=== PATIENT | male | born 1985 | race American Indian/Alaskan Native ===

== ENCOUNTER 2019-03-17 01:44 | Emergency (ER) | payer MEDICARE ==
--- NOTE | 2019-03-17 08:07 | Emergency Department Report ---
ED Rash HPI - HPI Chief Complaint: Urogenital-Male Stated Complaint: GROIN RASH Time Seen by Provider: 03/17/19 07:27 Duration: month Location: Other (penis head) Rash Symptoms: No Itching, No Facial Swelling, No Tongue/Oral Swelling, No Breathing Difficulties, No Choking Sensation, No Wheezing/Dyspnea, No Peeling, No Blistering, No Fever, No Lightheaded, No Malaise, No Myalgias Severity: mild Other History: This 34-year-old male presents to the ED complaining of nontender, and non erythemathous flat lesion to his penis times couple of michelet hs. He denies fever, penile discharge, testicular pain or swelling. Patient states that this rash is not itching or painful to the touch at all. ED Review of Systems ROS: Stated complaint: GROIN RASH Other details as noted in HPI Comment: All other systems reviewed and negative ED Past Medical Hx - Past Medical History Previous Medical History?: Yes Hx Psychiatric Treatment: Yes (BIPOLAR / DEPRESSION / SCHIZOAFFECTIVE) - Surgical History Past Surgical History?: No - Social History Smoking Status: Current Every Day Smoker Substance Use Type: None - Medications Home Medications: Home Medications Medication Instructions Recorded Confirmed Last Taken Type Divalproex ER [DepaKOTE ER] 500 mg PO BID 04/12/16 04/12/16 04/05/16 12:00 History Invega (Nf) 0 mg IM [id number] 04/12/16 04/13/16 Unknown History Haloperidol [Haldol] 08/08/16 Unknown History diphenhydrAMINE [Benadryl CAP] 25 mg PO Q8HR PRN 08/08/16 08/08/16 Unknown History Nystatin/Triamcin 1 applic TP TID #1 tube 03/17/19 Unknown Rx [Nystatin-Triamcinolone Ointm] Rash Exam - Exam General: Vital signs noted. No distress. Alert and acting appropriately. No testicular tenderness or swelling, no penile tenderness or swelling. no discharge noted to the penis HEENT: No Periorbital Edema, No Conjuctival Injection, No Chemosis, No Perioral Edema, No Tongue Edema, No Uvular Edema, No Compromised Airway, No Drooling Lungs: Yes Good Air Exchange, No Wheezes, No Ronchi, No Stridor, No Cough, No Labored Respirations, No Retractions, No Use of Accessory Muscles, No Other Abnormal Lung Sounds Heart: Yes Regular, No Murmur Skin: Yes Maculopapular Rash, No Urticarial Rash, No Morbilliform rash, No Bulla(e), No Excoriations, No Weeping, No Tenderness, No Erythema, No Edema, No Encrustations, No Other Other: Positive: Abdomen Normal, Neurologic Normal, Musculoskeletal Normal ED Medical Decision Making - Medical Decision Making 34-year-old male presents with pain mild nonerythematous nontender rash to the penis head. Discussed the patient that the rash is fungal in nature and is to apply nystatin ointment Discussed to follow up with primary care physician within 1 week. Patient urogenital emergency today in the ED. Vital signs are normal patient is in no acute distress Critical care attestation.: If time is entered above; I have spent that time in minutes in the direct care of this critically ill patient, excluding procedure time. ED Disposition Clinical Impression: Rash and nonspecific skin eruption Disposition: TO HOME OR SELFCARE Is pt being admited?: No Does the pt Need Aspirin: No Condition: Stable Instructions: Tinea Corporis (ED), Acute Rash (ED), Tinea Versicolor (ED) Additional Instructions: Make sure to follow up with the primary care physician as discussed. Take all your medications as you've been prescribed. If you have any worsening symptoms or develop new symptoms please return to ED immediately. Prescriptions: Nystatin/Triamcin [Nystatin-Triamcinolone Ointm] 1 applic TP TID #1 tube Referrals: PRIMARY CARE, [Primary Care Provider] - 3-5 Days [facility] [Outside] - 3-5 Days [facility] [Outside] - 3-5 Days Forms: Work/School Release Form(ED) Time of Disposition: 08:02 Print Language: AZERI
[2019-03-17 08:12] VITALS: BP 142/90
== END 2019-03-17 08:22 | disposition home or self-care (01) ==
LOC: ED 01:44
DX: R21 Rash and other nonspecific skin eruption (principal); F25.0 Schizoaffective disorder, bipolar type; F32.9 Major depressive disorder, single episode, unspecified; Z79.899 Other long term (current) drug therapy

== ENCOUNTER → 2020-03-07 15:11 | Emergency (ER) | payer MEDICARE | END | disposition left against medical advice (07) | LOC: ED 15:11 | DX: Z00.8 Encounter for other general examination (principal); Z53.21 Procedure and treatment not carried out due to patient leaving prior to being seen by health care provider ==

== ENCOUNTER 2020-09-07 00:40 | Emergency (ER) | payer MEDICARE ==
[2020-09-07 01:10] VITALS: BP 167/87
--- NOTE | 2020-09-07 01:26 | Emergency Department Report ---
ED Medical Clearance HPI - General Chief complaint: Medical Clearance Stated complaint: RX REILL Time Seen by Provider: 09/07/20 01:21 Source: patient Mode of arrival: Ambulatory - History of Present Illness Initial comments: 35-year-old -Malagasy male presents to the emergency room requesting a refill on his nystatin and triamcinolone cream. Patient has a past medical history of bipolar depression and schizophrenia but denies any suicidal or homicidal ideation denies any auditory visual hallucination. Patient denies any pain at this time. Reason for Medical Clearance: other (Medication refill) Home medications: Home Medications Medication Instructions Recorded Confirmed Last Taken Divalproex ER [DepaKOTE ER] 500 mg PO BID 04/12/16 04/12/16 04/05/16 12:00 Invega (Nf) 0 mg IM [id number] 04/12/16 04/13/16 Unknown diphenhydrAMINE [Benadryl CAP] 25 mg PO Q8HR PRN 08/08/16 08/08/16 Unknown haloperidoL [Haldol] 08/08/16 Unknown Previous Rx's Medication Instructions Recorded Last Taken Type Nystatin/Triamcin 1 applic TP TID #1 tube 09/07/20 Unknown Rx [Nystatin-Triamcinolone Ointm] Allergies/Adverse reactions: Allergies Allergy/AdvReac Type Severity Reaction Status Date / Time No Known Allergies Allergy Verified 08/08/16 14:02 ED Review of Systems ROS: Stated complaint: RX REILL Other details as noted in HPI Comment: All other systems reviewed and negative ED Past Medical Hx - Past Medical History Hx Psychiatric Treatment: Yes (BIPOLAR / DEPRESSION / SCHIZOAFFECTIVE) - Social History Smoking Status: Current Every Day Smoker - Medications Home Medications: Home Medications Medication Instructions Recorded Confirmed Last Taken Type Divalproex ER [DepaKOTE ER] 500 mg PO BID 04/12/16 04/12/16 04/05/16 12:00 History Invega (Nf) 0 mg IM [id number] 04/12/16 04/13/16 Unknown History diphenhydrAMINE [Benadryl CAP] 25 mg PO Q8HR PRN 08/08/16 08/08/16 Unknown History haloperidoL [Haldol] 08/08/16 Unknown History Nystatin/Triamcin 1 applic TP TID #1 tube 09/07/20 Unknown Rx [Nystatin-Triamcinolone Ointm] ED Physical Exam - General Limitations: No Limitations General appearance: alert, in no apparent distress - Head Head exam: Present: atraumatic, normocephalic - Eye Eye exam: Present: normal appearance - Neck Neck exam: Present: normal inspection, full ROM - Respiratory Respiratory exam: Absent: accessory muscle use - Cardiovascular Cardiovascular Exam: Present: regular rate - Extremities Exam Extremities exam: Present: normal inspection, full ROM - Back Exam Back exam: Present: normal inspection - Neurological Exam Neurological exam: Present: alert, oriented X3, normal gait - Psychiatric Psychiatric exam: Present: normal affect, normal mood - Skin Skin exam: Present: warm, dry, intact, normal color. Absent: rash ED Course Vital Signs 09/07/20 01:08 Temperature 97.9 F Pulse Rate 69 Respiratory 16 Rate Blood Pressure 167/87 O2 Sat by Pulse 100 Oximetry ED Medical Decision Making - Medical Decision Making 35-year-old -Malagasy male presents to the emergency room requesting a refill on his nystatin and triamcinolone cream. Patient has a past medical history of bipolar depression and schizophrenia but denies any suicidal or homicidal ideation denies any auditory visual hallucination. Patient denies any pain at this time. Patient is referred to [facility] for refill on psych meds. Patient be given a prescription refill for his eczema medication. ED Disposition Clinical Impression: Medication refill Disposition: DC-01 TO HOME OR SELFCARE Is pt being admited?: No Does the pt Need Aspirin: No Condition: Stable Additional Instructions: Please follow-up with your primary mental health provider. Prescriptions: Nystatin/Triamcin [Nystatin-Triamcinolone Ointm] 1 applic TP TID #1 tube Referrals: [facility] [Outside] - 3-5 Days [facility] [Outside] - 3-5 Days
== END 2020-09-07 01:40 | disposition home or self-care (01) ==
LOC: ED 00:40
DX: F25.0 Schizoaffective disorder, bipolar type (principal); Z76.0 Encounter for issue of repeat prescription; F17.200 Nicotine dependence, unspecified, uncomplicated; Z79.899 Other long term (current) drug therapy
CPT/HCPCS: 99282

== ENCOUNTER 2021-04-10 14:14 | Emergency (ER) | payer SELFPAY | END 2021-04-10 19:00 | LOC: ED 14:14 | DX: F98.9 Unspecified behavioral and emotional disorders with onset usually occurring in childhood and adolescence (principal); Z53.21 Procedure and treatment not carried out due to patient leaving prior to being seen by health care provider ==

== ENCOUNTER 2021-04-10 22:58 | Emergency (ER) | payer MEDICARE ==
--- NOTE | 2021-04-11 00:49 | Emergency Department Report ---
ED General Adult HPI - General Chief complaint: Abdominal Pain Stated complaint: ABD PAIN PUI?: No Time Seen by Provider: 04/11/21 00:39 Source: patient, RN notes reviewed, old records reviewed Mode of arrival: Ambulatory Limitations: No Limitations - History of Present Illness Initial comments: The patient is a 36-year-old gentleman. He has a history of chronic psychiatric disease. He presents to the ER with 2 complaints. His first complaint is request for refill on medications, including Risperdal, Invega, and Depakote/valproic acid. He thinks he takes Depakote 500 twice daily. He does not know his dose of Risperdal or Invega. He is not homicidal or suicidal. Secondary complaint is abdominal cramping for a few weeks. He states "I ate too much chocolate." Denies headache, neck pain, chest pain, vomiting, urinary symptoms and testicular pain, and he reports that he is passing gas. -: week(s) Location: abdomen Severity scale (0 -10): 8 Quality: aching Improves with: none Worsens with: none - Related Data Home Medications Medication Instructions Recorded Confirmed Last Taken Invega (Nf) 0 mg IM [id number] 04/12/16 04/13/16 Unknown diphenhydrAMINE [Benadryl CAP] 25 mg PO Q8HR PRN 08/08/16 08/08/16 Unknown haloperidoL [Haldol] 08/08/16 Unknown Previous Rx's Medication Instructions Recorded Last Taken Type Nystatin/Triamcin 1 applic TP TID #1 tube 09/07/20 Unknown Rx [Nystatin-Triamcinolone Ointm] Divalproex ER [Depakote ER] 500 mg PO BID #30 tab 04/11/21 Unknown Rx Allergies Allergy/AdvReac Type Severity Reaction Status Date / Time No Known Allergies Allergy Verified 08/08/16 14:02 ED Review of Systems ROS: Stated complaint: ABD PAIN Other details as noted in HPI Constitutional: denies: fever Gastrointestinal: abdominal pain, constipation Genitourinary: denies: dysuria Psychiatric: denies: homicidal thoughts, suicidal thoughts ED Past Medical Hx - Past Medical History Hx Psychiatric Treatment: Yes (BIPOLAR / DEPRESSION / SCHIZOAFFECTIVE) - Surgical History Past Surgical History?: No - Social History Smoking Status: Current Every Day Smoker - Medications Home Medications: Home Medications Medication Instructions Recorded Confirmed Last Taken Type Invega (Nf) 0 mg IM [id number] 04/12/16 04/13/16 Unknown History diphenhydrAMINE [Benadryl CAP] 25 mg PO Q8HR PRN 08/08/16 08/08/16 Unknown History haloperidoL [Haldol] 08/08/16 Unknown History Nystatin/Triamcin 1 applic TP TID #1 tube 09/07/20 Unknown Rx [Nystatin-Triamcinolone Ointm] Divalproex ER [Depakote ER] 500 mg PO BID #30 tab 04/11/21 Unknown Rx ED Physical Exam - General Limitations: No Limitations General appearance: alert, in no apparent distress - Head Head exam: Present: atraumatic, normocephalic - Eye Eye exam: Present: normal appearance, EOMI. Absent: nystagmus - ENT ENT exam: Present: normal exam, normal orophraynx, mucous membranes moist, normal external ear exam - Neck Neck exam: Present: normal inspection, full ROM. Absent: tenderness, meningismus - Respiratory Respiratory exam: Present: normal lung sounds bilaterally. Absent: respiratory distress, wheezes, rales, rhonchi, stridor, decreased breath sounds - Cardiovascular Cardiovascular Exam: Present: regular rate, normal rhythm, normal heart sounds. Absent: bradycardia, tachycardia, irregular rhythm, systolic murmur, diastolic murmur, rubs, gallop - GI/Abdominal GI/Abdominal exam: Present: soft, normal bowel sounds. Absent: distended, tenderness, guarding, rebound, rigid, pulsatile mass - Rectal Rectal exam: Present: deferred - Extremities Exam Extremities exam: Present: normal inspection, full ROM, other (2+ pulses noted in the bilateral upper extremities.). Absent: pedal edema, calf tenderness - Back Exam Back exam: Present: normal inspection. Absent: tenderness, CVA tenderness (R), CVA tenderness (L), paraspinal tenderness, vertebral tenderness - Neurological Exam Neurological exam: Present: alert, oriented X3, normal gait, other (No facial droop. Tongue midline. Extraocular movements intact bilaterally. Facial sensation intact to light touch in V1, V2, V3 distribution bilaterally. 5 and a 5 strength in 4 extremities. Sensation intact to light touch in 4 extremities.). Absent: motor sensory deficit - Psychiatric Psychiatric exam: Present: flat affect. Absent: homicidal ideation, suicidal ideation - Skin Skin exam: Present: warm, dry, intact, normal color. Absent: rash ED Course Vital Signs 04/10/21 23:23 Temperature 98.8 F Pulse Rate 70 Respiratory 18 Rate Blood Pressure 145/52 [Right] O2 Sat by Pulse 97 Oximetry ED Medical Decision Making - Lab Data Vital Signs 04/10/21 23:23 Temperature 98.8 F Pulse Rate 70 Respiratory 18 Rate Blood Pressure 145/52 [Right] O2 Sat by Pulse 97 Oximetry - Medical Decision Making Differential diagnosis, including but not limited to: Encounter for medical screening examination, encounter for behavioral health screening examination, functional abdominal pain, constipation, medication refill Assessment and plan: 36-year-old gentleman with 2 complaints. Complaint #1, request for refill on medications. Patient cannot corroborate his dose of Risperdal or Invega. He has received Depakote at this hospital in the past. We can refill his Depakote. He will need to follow-up with his outpatient primary care provider or psychiatrist for refill on Invega and/or Risperdal. Does not meet criteria for 1013 or involuntary hold. Complaint #2, abdominal pain secondary to chocolate consumption for the past few weeks. Abdomen soft and benign, without rebound, guarding or peritoneal signs. Physical examination otherwise unremarkable. Expectant management. Diet lifestyle modifications. Critical care attestation.: If time is entered above; I have spent that time in minutes in the direct care of this critically ill patient, excluding procedure time. ED Disposition Clinical Impression: Medication refill, Encounter for behavioral health screening, Encounter for medical screening examination, Abdominal pain Disposition: 01 HOME / SELF CARE / HOMELESS Is pt being admited?: No Does the pt Need Aspirin: No Condition: Good Instructions: Abdominal Pain, Adult Additional Instructions: Please drink 4 to 6 cups of water per day. Avoid consumption of Motrin, ibuprofen, Naprosyn, Aleve. Eat plenty of fiber, vegetables and lean protein. Patient may take [id number] Tylenol as needed for physical pain. Please follow-up with your primary care doctor, or your parts counter specialist for refill on Risperdal and Invega. Please return to the emergency room right away with new pain, worsened pain, migration of pain, projectile vomiting, change in mental status, confusion, inability to tolerate liquid feeds, homicidality, suicidality, change in mental status, or any new, worsened or different symptoms not present on the initial emergency room evaluation Prescriptions: Divalproex ER [Depakote ER] 500 mg PO BID #30 tab Referrals: [facility] [Outside] - 3-5 Days [facility] [Outside] - 3-5 Days [facility] [Provider Group] - 3-5 Days
[2021-04-11] MEDS ORDERED: FAMOTIDINE 20 MG TAB PO ONE (01:01)
[2021-04-11 01:42] VITALS: BP 137/79
== END 2021-04-11 01:43 | disposition home or self-care (01) ==
LOC: ED 22:58
DX: R10.9 Unspecified abdominal pain (principal); Z76.0 Encounter for issue of repeat prescription; Z13.30 Encounter for screening examination for mental health and behavioral disorders, unspecified; Z00.00 Encounter for general adult medical examination without abnormal findings; F17.200 Nicotine dependence, unspecified, uncomplicated; F31.9 Bipolar disorder, unspecified
CPT/HCPCS: 99282

== ENCOUNTER 2022-01-20 21:40 | Emergency (ER) | payer MEDICARE | END 2022-01-21 01:23 | disposition left against medical advice (07) | LOC: ED 21:40 | DX: Z00.00 Encounter for general adult medical examination without abnormal findings (principal); Z76.0 Encounter for issue of repeat prescription; Z53.21 Procedure and treatment not carried out due to patient leaving prior to being seen by health care provider ==

== ENCOUNTER 2022-02-08 04:21 | Emergency (ER) | payer SELFPAY | END 2022-02-08 04:30 | disposition left against medical advice (07) | LOC: ED 04:21 | DX: Z00.00 Encounter for general adult medical examination without abnormal findings (principal); Z76.0 Encounter for issue of repeat prescription; Z53.21 Procedure and treatment not carried out due to patient leaving prior to being seen by health care provider ==